=== PATIENT | female | born 1955 | race Caucasian/White ===

== ENCOUNTER → 2021-03-04 | Outpatient (CLI) | payer OTHER ==
[~2021-03-04] MED LIST: ASPI81CH; ATOR10; CYCL10 PO; ESTR.1TPW TOP; HYDACE10B PO; IBUP800 PO; OXYACE5T PO; Sudogest60 MG
== END | disposition home or self-care (01) ==
LOC: LAB 10:53 → LAB SHORT 10:53
DX: L08.0 Pyoderma (principal)
CPT/HCPCS: 87070; 87077; 87147; 87186; 87205

== ENCOUNTER → 2021-05-19 | Outpatient (CLI) | payer OTHER | LOC: LAB SHORT 08:07 → LAB 08:07 | DX: L08.0 Pyoderma (principal) | CPT/HCPCS: 87070; 87205 ==

== ENCOUNTER → 2021-11-18 | Outpatient (CLI) | payer OTHER | END | disposition home or self-care (01) | LOC: LAB SHORT 17:03 | DX: N76.0 Acute vaginitis (principal) | CPT/HCPCS: 87070; 87205 ==